=== PATIENT | male | born 1990 | race Hispanic/Latino ===

== ENCOUNTER 2018-03-02 17:02 | Emergency (ER) | payer BC, OTHER ==
[2018-03-02] MEDS ORDERED: METHYLPREDNISOLONE 125 MG INJ ONE (17:48)
[2018-03-02] MEDS ORDERED: LEVALBUTEROL 1.25 MG/3 ML NEB ONE ×2 (17:48→18:51)
--- NOTE | 2018-03-02 19:01 | RAD REPORT ---
EXAM DESCRIPTION: RAD - Chest Single View - 03/02/2018 6:02 pm CLINICAL HISTORY: Shortness of breath, asthma history, wheezing, cough COMPARISON: September 2016 TECHNIQUE: AP portable chest image was obtained 1758 hours . FINDINGS: Lung volumes are relatively low. No peripheral mass or consolidation. Significant failure is not suspected. Lung markings are prominent but not clearly different from comparison. Heart and va sculature are normal. No measurable pleural effusion and no pneumothorax. No gross bony abnormality s een. No acute aortic findings suspected. IMPRESSION: No acute cardiopulmonary process. No clear change from comparison.
--- NOTE | 2018-03-02 19:27 | ER ---
Nurse's Notes [facility] Name: Umer Becerra Age: 28 yrs Sex: Male : 1990 Arrival Date: 03/02/2018 Time: 17:09 Bed 10 Private MD: None, None Diagnosis: Asthma Presentation: 03/02 17:12 Presenting complaint: Patient states: SOB x 1 day. Denies fever. Transition of care: sv patient was not received from another setting of care. Onset of symptoms was March 02, 2018. Care prior to arrival: None. 17:12 Method Of Arrival: Ambulatory sv 17:12 Acuity: MAYRA 3 sv 17:55 Risk Assessment: Do you want to hurt yourself or someone else? Patient reports no rv desire to harm self or others. Initial Sepsis Screen: Does the patient meet any 2 criteria? No. Patient's initial sepsis screen is negative. Does the patient have a suspected source of infection? No. Patient's initial sepsis screen is negative. Triage Assessment: 17:55 General: Appears in no apparent distress. uncomfortable. Respiratory: Reports cough rv that is Onset: The symptoms/episode began/occurred suddenly, the patient has mild shortness of breath. Historical: - Allergies: 17:16 No Known Allergies; sv - Home Meds: 17:16 salbutamol [Active]; sv - PMHx: 17:16 Asthma; sv - PSHx: 17:16 None; sv - Immunization history:: Adult Immunizations up to date. - Social history:: Smoking status: Patient uses tobacco products, denies chronic smoking, but will smoke occasionally. - Ebola Screening: : No symptoms or risks identified at this time. Screenin:54 Abuse screen: Denies threats or abuse. Denies injuries from another. Nutritional rv screening: No deficits noted. Tuberculosis screening: No symptoms or risk factors identified. Fall Risk None identified. Assessment: 17:53 General: Appears in no apparent distress. uncomfortable, Behavior is calm, cooperative. rv Pain: Complains of pain in chest Also complains of shortness of breath, COUGH. Neuro: Level of Consciousness is awake, alert, obeys commands, Oriented to person, place, time, situation. Cardiovascular: Capillary refill < 3 seconds Rhythm is regular. Respiratory: Airway is patent Respiratory effort is even, Breath sounds are clear bilaterally. GI: No signs and/or symptoms were reported involving the gastrointestinal system. : No signs and/or symptoms were reported regarding the genitourinary system. EENT: No signs and/or symptoms were reported regarding the EENT system. Derm: Skin is intact. Vital Signs: 17:16 BP 122 / 73; Pulse 111; Resp 22; Pulse Ox 97% ; Weight 89.81 kg; Height 5 ft. 5 in. sv (165.10 cm); Pain 8/10; 17:16 Body Mass Index 32.95 (89.81 kg, 165.10 cm) sv ED Course: 17:09 Patient arrived in ED. mr 17:10 None, None is Private Physician. mr 17:15 Triage completed. sv 17:17 Arm band placed on right wrist. sv 17:20 Robb Gray MD is Attending Physician. kdr 17:45 Inserted saline lock: 20 gauge in right antecubital area, using aseptic technique. rv 17:55 Patient has correct armband on for positive identification. Call light in reach. Adult rv w/ patient. Pulse ox on. NIBP on. 18:00 CXR XRAY In Process Unspecified. EDMS 19:39 No provider procedures requiring assistance completed. IV discontinued, bleeding rv controlled, No redness/swelling at site. Pressure dressing applied. Administered Medications: 17:48 Drug: Xopenex (3) 1.25 mg Route: Inhalation; rv 19:38 Follow up: Response: No adverse reaction rv 17:48 Drug: SOLU-Medrol 125 mg Route: IVP; Site: right antecubital; rv 19:38 Follow up: Response: No adverse reaction rv 19:10 Drug: Xopenex (3) 1.25 mg Route: Inhalation; rv 19:38 Follow up: Response: No adverse reaction rv Outcome: 19:26 Discharge ordered by . kdr 19:39 Discharged to home ambulatory. rv 19:39 Condition: improved 19:39 Discharge instructions given to family, Instructed on discharge instructions, follow up and referral plans. medication usage, Demonstrated understanding of instructions, follow-up care, medications, Prescriptions given X 3. 19:39 Patient left the ED. rv Signatures: Dispatcher [employer] EDMS Gretta Kim RN RN Robb Gray MD MD kdr Rivera, Maria mr Pillo Bal, RN RN rv
--- NOTE | 2018-03-02 19:27 | EDPHYS ---
Physician Documentation [facility] Name: Umer Becerra Age: 28 yrs Sex: Male : 1990 Arrival Date: 03/02/2018 Time: 17:09 Bed 10 Private MD: None, None ED Physician Robb Gray HPI: 03/02 17:36 This 28 yrs old Male presents to ER via Ambulatory with complaints of Cough, kdr Shortness Of Breath. 17:37 This 28 yrs old Male presents to ER via Ambulatory with complaints of Cough, kdr Shortness Of Breath. 17:36 Onset: The symptoms/episode began/occurred acutely, suddenly, this morning. Associated kdr signs and symptoms: The patient has no apparent associated signs or symptoms. Modifying factors: The patient symptoms are alleviated by nothing, the patient symptoms are aggravated by. 17:37 The patient has shortness of breath at rest, with light activity. kdr 21:27 Duration: The symptoms are continuous, and are steadily getting worse. The patient's kdr shortness of breath is aggravated by coughing, exertion, light activity, is alleviated by nothing. Associated signs and symptoms: Pertinent positives: non-productive cough, Pertinent negatives: diaphoresis, dizziness, fever, hemoptysis, nausea, numbness in extremities, visual changes, vomiting. Severity of symptoms: At their worst the symptoms were mild moderate just prior to arrival, in the emergency department the symptoms are unchanged. The patient has experienced similar episodes in the past, multiple times. The patient has been recently seen at an urgent care, just prior to arrival, The patient didn't feel better so they came to the ED. Historical: - Allergies: 17:16 No Known Allergies; sv - Home Meds: 17:16 salbutamol [Active]; sv - PMHx: 17:16 Asthma; sv - PSHx: 17:16 None; sv - Immunization history:: Adult Immunizations up to date. - Social history:: Smoking status: Patient uses tobacco products, denies chronic smoking, but will smoke occasionally. - Ebola Screening: : No symptoms or risks identified at this time. ROS: 21:27 Constitutional: Negative for fever, chills, and weight loss, Eyes: Negative for injury, kdr pain, redness, and discharge, ENT: Negative for injury, pain, and discharge, Neck: Negative for injury, pain, and swelling, Cardiovascular: Negative for chest pain, palpitations, and edema, Abdomen/GI: Negative for abdominal pain, nausea, vomiting, diarrhea, and constipation, Back: Negative for injury and pain, : Negative for injury, bleeding, discharge, and swelling, MS/Extremity: Negative for injury and deformity, Skin: Negative for injury, rash, and discoloration, Neuro: Negative for headache, weakness, numbness, tingling, and seizure activity. Psych: Negative for depression, anxiety, suicide ideation, homicidal ideation, and hallucinations, Allergy/Immunology: Negative for hives, rash, and allergies, Endocrine: Negative for neck swelling, polydipsia, polyuria, polyphagia, and marked weight changes, Hematologic/Lymphatic: Negative for swollen nodes, abnormal bleeding, and unusual bruising. 21:27 Respiratory: Positive for cough, with no reported sputum, shortness of breath, wheezing, Negative for dyspnea on exertion, hemoptysis, orthopnea, pleurisy, sputum production. Exam: 21:27 Constitutional: This is a well developed, well nourished patient who is awake, alert, kdr and in no acute distress. Head/Face: Normocephalic, atraumatic. Eyes: Pupils equal round and reactive to light, extra-ocular motions intact. Lids and lashes normal. Conjunctiva and sclera are non-icteric and not injected. Cornea within normal limits. Periorbital areas with no swelling, redness, or edema. Neck: Trachea midline, no thyromegaly or masses palpated, and no cervical lymphadenopathy. Supple, full range of motion without nuchal rigidity, or vertebral point tenderness. No Meningismus. Chest/axilla: Normal chest wall appearance and motion. Nontender with no deformity. No lesions are appreciated. Cardiovascular: Regular rate and rhythm with a normal S1 and S2. No gallops, murmurs, or rubs. Normal PMI, no JVD. No pulse deficits. Abdomen/GI: Soft, non-tender, with normal bowel sounds. No distension or tympany. No guarding or rebound. No evidence of tenderness throughout. Back: No spinal tenderness. No costovertebral tenderness. Full range of motion. Skin: Warm, dry with normal turgor. Normal color with no rashes, no lesions, and no evidence of cellulitis. MS/ Extremity: Pulses equal, no cyanosis. Neurovascular intact. Full, normal range of motion. Neuro: Awake and alert, GCS 15, oriented to person, place, time, and situation. Cranial nerves II-XII grossly intact. Motor strength 5/5 in all extremities. Sensory grossly intact. Cerebellar exam normal. Normal gait. Psych: Awake, alert, with orientation to person, place and time. Behavior, mood, and affect are within normal limits. 21:27 Respiratory: mild respiratory distress is noted, moderate respiratory distress is noted, Respirations: labored breathing, that is mild, prolonged exhalation, that is mild, shallow respirations, that is mild, Breath sounds: wheezing: that is mild, is heard diffusely. Vital Signs: 17:16 BP 122 / 73; Pulse 111; Resp 22; Pulse Ox 97% ; Weight 89.81 kg; Height 5 ft. 5 in. sv (165.10 cm); Pain 8/10; 17:16 Body Mass Index 32.95 (89.81 kg, 165.10 cm) sv MDM: 19:26 Patient medically screened. kdr 21:27 Data reviewed: vital signs, nurses notes. Counseling: I had a detailed discussion with kdr the patient and/or guardian regarding: the historical points, exam findings, and any diagnostic results supporting the discharge/admit diagnosis, the need for outpatient follow up. 03/02 17:34 Order name: CXR XRAY; Complete Time: 19:25 kdr Administered Medications: 17:48 Drug: Xopenex (3) 1.25 mg Route: Inhalation; rv 19:38 Follow up: Response: No adverse reaction rv 17:48 Drug: SOLU-Medrol 125 mg Route: IVP; Site: right antecubital; rv 19:38 Follow up: Response: No adverse reaction rv 19:10 Drug: Xopenex (3) 1.25 mg Route: Inhalation; rv 19:38 Follow up: Response: No adverse reaction rv Disposition: 18 19:26 Discharged to Home. Impression: Asthma. - Condition is Stable. - Discharge Instructions: Asthma, Adult, [id number]. - Prescriptions for Pepcid 20 mg Oral Tablet - take 1 tablet by ORAL route every 12 hours for 5 days; 10 tablet. Medrol (Richi) 4 mg Oral Tablets, Dose Pack - take 1 tablet by ORAL route as directed - follow package instructions; 1 packet. Albuterol Sulfate 90 mcg/actuation Inhalation - inhale 1-2 puff by INHALATION route every 4-6 hours; 2 Inhaler. - Medication Reconciliation Form, Thank You Letter, Work release form form. - Follow up: Private Physician; When: 2 - 3 days; Reason: If symptoms return, Further diagnostic work-up, Recheck today's complaints, Continuance of care, Re-evaluation by your physician. - Problem is an acute exacerbation. - Symptoms have improved. Signatures: Dispatcher [employer] Gretta Gomez RN RN Robb Gray MD MD [facility] Pillo Bal RN RN rv Corrections: (The following items were deleted from the chart) 17:35 17:21 The patient or guardian reports cough, kdr kdr 17:35 17:21 This 28 yrs old Male presents to ER via Ambulatory with complaints of kdr Cough, Shortness Of Breath. kdr 17:35 17:22 Associated signs and symptoms: Pertinent positives: cough, fever, Pertinent kdr negatives: chest pain, constipation, cough, kdr 17:35 17:22 Modifying factors: The patient symptoms are alleviated by acetaminophen, kdr kdr 17:35 17:22 The patient has experienced similar episodes in the past, a few times, kdr kdr 17:35 17:22 The patient has not recently seen a physician, kdr kdr 17:35 17:25 Constitutional: Negative for weight loss - he has had fever to 103 Eyes: Negative kdr for injury, pain, redness, and discharge, ENT: Negative for injury, pain, and discharge, Neck: Negative for injury, pain, and swelling, Cardiovascular: Negative for chest pain, palpitations, and edema, Abdomen/GI: Negative for abdominal pain, nausea, vomiting, diarrhea, and constipation, Back: Negative for injury and pain, : Negative for injury, bleeding, discharge, and swelling, MS/Extremity: Negative for injury and deformity, Skin: Negative for injury, rash, and discoloration, Neuro: Negative for headache, weakness, numbness, tingling, and seizure activity. Psych: Negative for depression, anxiety, suicide ideation, homicidal ideation, and hallucinations, Allergy/Immunology: Negative for hives, rash, and allergies, Endocrine: Negative for neck swelling, polydipsia, polyuria, polyphagia, and marked weight changes, Hematologic/Lymphatic: Negative for swollen nodes, abnormal bleeding, and unusual bruising, kdr 17:35 17:25 Respiratory: Positive for cough, with no reported sputum, Negative for dyspnea on kdr exertion, hemoptysis, shortness of breath, sputum production, wheezing, kdr 17:35 17:25 Constitutional: This is a well developed, well nourished patient who is awake, kdr alert, and in no acute distress. Head/Face: Normocephalic, atraumatic. Eyes: Pupils equal round and reactive to light, extra-ocular motions intact. Lids and lashes normal. Conjunctiva and sclera are non-icteric and not injected. Cornea within normal limits. Periorbital areas with no swelling, redness, or edema. Neck: Trachea midline, no thyromegaly or masses palpated, and no cervical lymphadenopathy. Supple, full range of motion without nuchal rigidity, or vertebral point tenderness. No Meningismus. Chest/axilla: Normal chest wall appearance and motion. Nontender with no deformity. No lesions are appreciated. Cardiovascular: Regular rate and rhythm with a normal S1 and S2. No gallops, murmurs, or rubs. Normal PMI, no JVD. No pulse deficits. Respiratory: Lungs have equal breath sounds bilaterally, clear to auscultation and percussion. No rales, rhonchi or wheezes noted. No increased work of breathing, no retractions or nasal flaring. Abdomen/GI: Soft, non-tender, with normal bowel sounds. No distension or tympany. No guarding or rebound. No evidence of tenderness throughout. Back: No spinal tenderness. No costovertebral tenderness. Full range of motion. Skin: Warm, dry with normal turgor. Normal color with no rashes, no lesions, and no evidence of cellulitis. MS/ Extremity: Pulses equal, no cyanosis. Neurovascular intact. Full, normal range of motion. Neuro: Awake and alert, GCS 15, oriented to person, place, time, and situation. Cranial nerves II-XII grossly intact. Motor strength 5/5 in all extremities. Sensory grossly intact. Cerebellar exam normal. Normal gait. Psych: Awake, alert, with orientation to person, place and time. Behavior, mood, and affect are within normal limits. kdr 17:36 17:25 Data reviewed: vital signs, nurses notes, lab test result(s), kdr kdr 17:36 17:25 Counseling: I had a detailed discussion with the patient and/or guardian kdr regarding: the historical points, exam findings, and any diagnostic results supporting the discharge/admit diagnosis, lab results, kdr 17:36 17:34 Chest Single View+[id number] ordered. EDMS kdr 19:39 19:26 03/02/2018 19:26 Discharged to Home. Impression: Asthma. Condition is Stable. rv Forms are Medication Reconciliation Form, Thank You Letter, Antibiotic Education, Prescription Opioid Use. Follow up: Private Physician; When: 2 - 3 days; Reason: If symptoms return, Further diagnostic work-up, Recheck today's complaints, Continuance of care, Re-evaluation by your physician. Problem is an acute exacerbation. Symptoms have improved. kdr
[2018-03-02 19:43] VITALS: BP 122/73; O2SAT 97
== END 2018-03-02 19:39 | disposition home or self-care (01) ==
LOC: ER 17:02
DX: J45.909 Unspecified asthma, uncomplicated (principal); Z72.0 Tobacco use
CPT/HCPCS: 71045; 96374; 99284; J2930

== ENCOUNTER 2019-07-01 23:16 | Emergency (ER) | payer BC ==
[2019-07-01] MEDS ORDERED: ACETAMINOPHEN 500 MG TAB ONE (23:53)
[2019-07-02 02:52] LABS: Absolute Lymphocytes (CBC) 2.5 K/uL (0.7-4.9); Basophils % 0.5 % (0-1.3); Hematocrit 37.6 % (39.6-49.0); Lymphocytes % 17.7 % (15.3-44.8); RBC Red Blood Cell Count 6.15 M/uL (4.33-5.43)
--- NOTE | 2019-07-02 04:15 | ER ---
Nurse's Notes [facility] Name: Umer Becerra Age: 29 yrs Sex: Male : 1990 Arrival Date: 07/01/2019 Time: 23:21 Bed 13 Private MD: Diagnosis: Acute febrile illness. Pharyngitis. Leukocytosis Presentation: 07/01 23:45 Presenting complaint: Patient states: Fever, chills, body aches that began today; Temp lp1 of 102 about 2000 tonight, patient did not take any meds, worried about drug screen; Educated on medications for fever. Transition of care: patient was not received from another setting of care. Onset of symptoms was July 01, 2019. Risk Assessment: Do you want to hurt yourself or someone else? Patient reports no desire to harm self or others. Initial Sepsis Screen: Does the patient meet any 2 criteria? Temp <36.0*C (96.8*F)) or > 38.3*C (100.9*F). HR > 90 bpm. Does the patient have a suspected source of infection? No. Patient's initial sepsis screen is negative. Care prior to arrival: None. 23:45 Method Of Arrival: Ambulatory lp1 23:45 Acuity: MAYRA 4 lp1 Triage Assessment: 23:46 General: Patient unable to tolerate Flu swab. lp1 Historical: - Allergies: 23:47 No Known Allergies; lp1 - Home Meds: 23:47 salbutamol [Active]; lp1 - PMHx: 23:47 Asthma; lp1 - PSHx: 23:47 None; lp1 - Immunization history:: Adult Immunizations up to date. - Social history:: Smoking status: Patient reports the use of cigarette tobacco products, smokes one-half pack cigarettes per day. - Ebola Screening: : No symptoms or risks identified at this time. Screenin:51 Abuse screen: Denies threats or abuse. Denies injuries from another. Nutritional lp1 screening: No deficits noted. Tuberculosis screening: No symptoms or risk factors identified. Fall Risk None identified. Assessment: 00:00 General: Appears uncomfortable, ill, Behavior is cooperative, drowsy. Pain: Complains vc of pain in body aches. Neuro: Level of Consciousness is obeys commands, lethargic, Oriented to person, place, time. Cardiovascular: Capillary refill < 3 seconds Patient's skin is warm and dry. Rhythm is sinus tachycardia. Respiratory: Denies shortness of breath. GI: No signs and/or symptoms were reported involving the gastrointestinal system. : No signs and/or symptoms were reported regarding the genitourinary system. EENT: No signs and/or symptoms were reported regarding the EENT system. Derm: Skin temperature is hot. Musculoskeletal: Circulation, motion, and sensation intact. Range of motion: intact in all extremities. 07/02 01:00 Reassessment: Patient and/or family updated on plan of care and expected duration. Pain vc level reassessed. patient resting with eyes closed. Patient states symptoms have not improved. 02:00 Reassessment: Patient and/or family updated on plan of care and expected duration. Pain vc level reassessed. Patient states he feels dizzy when he stands up, patient sat down on bed and stated the dizziness went away. 03:00 Reassessment: Patient and/or family updated on plan of care and expected duration. Pain vc level reassessed. 04:00 Reassessment: Patient resting with eyes closed, respirations even and unlabored. Spouse vc at bedside. Vital Signs: 07/01 23:44 BP 126 / 72; Pulse 120; Resp 18; Temp 103.2(O); Pulse Ox 98% on R/A; Weight 99.79 kg lp1 (R); 07/02 01:00 BP 112 / 74; Pulse 118; Resp 20; Pulse Ox 97% on R/A; vc 01:33 Temp 100.6(O); lp1 02:00 BP 114 / 74; Pulse 107; Resp 17; Pulse Ox 96% on R/A; vc 03:16 BP 107 / 70; Pulse 105; Resp 18; Temp 100.9; Pulse Ox 97% on R/A; oe 04:00 BP 110 / 72; Pulse 102; Resp 18; Pulse Ox 97% on R/A; vc ED Course: 07/01 23:21 Patient arrived in ED. cl3 23:46 Triage completed. lp1 23:46 Arm band placed on. lp1 07/02 00:00 Patient has correct armband on for positive identification. vc 01:36 Sidra Madsen RN is Primary Nurse. vc 01:58 Honorio Mcdaniel MD is Attending Physician. pkl 04:45 IV discontinued, intact, bleeding controlled, No redness/swelling at site. Pressure vc dressing applied. 04:45 No provider procedures requiring assistance completed. vc Administered Medications: 07/01 23:51 Drug: Tylenol 1000 mg Route: PO; lp1 07/02 01:34 Follow up: Response: Temperature is decreased lp1 03:18 Follow up: Response: Temperature is decreased vc Outcome: 04:13 Discharge ordered by . pkl 04:45 Discharged to home ambulatory, with significant other. vc 04:45 Condition: good 04:45 Discharge instructions given to patient, significant other, Instructed on discharge instructions, follow up and referral plans. medication usage, Demonstrated understanding of instructions, follow-up care, medications, Prescriptions given X 1. 04:46 Patient left the ED. vc Signatures: Honorio Mcdaniel MD MD pkl Alma Sherman, RN RN lp1 David Diego Charde cl3 Sidra Madsen RN RN vc
--- NOTE | 2019-07-02 04:15 | EDPHYS ---
Physician Documentation [facility] Name: Umer Becerra Age: 29 yrs Sex: Male : 1990 Arrival Date: 07/01/2019 Time: 23:21 Bed 13 Private MD: ED Physician Honorio Mcdaniel HPI: 07/02 04:08 This 29 yrs old Male presents to ER via Ambulatory with complaints of Fever. pkl 04:08 The patient reports fever, that was measured at 103.2 degrees Fahrenheit. Onset: The pkl symptoms/episode began/occurred just prior to arrival. Associated signs and symptoms: Pertinent positives: bodyache. Historical: - Allergies: 07/01 23:47 No Known Allergies; lp1 - Home Meds: 23:47 salbutamol [Active]; lp1 - PMHx: 23:47 Asthma; lp1 - PSHx: 23:47 None; lp1 - Immunization history:: Adult Immunizations up to date. - Social history:: Smoking status: Patient reports the use of cigarette tobacco products, smokes one-half pack cigarettes per day. - Ebola Screening: : No symptoms or risks identified at this time. ROS: 07/02 04:08 Eyes: Negative for injury, pain, redness, and discharge, ENT: Negative for injury, pkl pain, and discharge, Neck: Negative for injury, pain, and swelling, Cardiovascular: Negative for chest pain, palpitations, and edema, Respiratory: Negative for shortness of breath, cough, wheezing, and pleuritic chest pain, Abdomen/GI: Negative for abdominal pain, nausea, vomiting, diarrhea, and constipation, Back: Negative for injury and pain, : Negative for injury, bleeding, discharge, and swelling, MS/Extremity: Negative for injury and deformity, Skin: Negative for injury, rash, and discoloration, Neuro: Negative for headache, weakness, numbness, tingling, and seizure. Exam: 04:08 Head/Face: Normocephalic, atraumatic. Eyes: Pupils equal round and reactive to light, pkl extra-ocular motions intact. Lids and lashes normal. Conjunctiva and sclera are non-icteric and not injected. Cornea within normal limits. Periorbital areas with no swelling, redness, or edema. 04:08 ENT: Posterior pharynx: erythema, that is mild. 04:08 Neck: Exam negative for nuchal rigidity. 04:08 Chest/axilla: Exam negative for acute changes. 04:08 Cardiovascular: Rate: tachycardic, actual rate is 120 bpm, Rhythm: regular. 04:08 Respiratory: the patient does not display signs of respiratory distress, Respirations: normal, Breath sounds: are clear throughout. 04:08 Abdomen/GI: Bowel sounds: normal, Palpation: abdomen is soft and non-tender, in all quadrants. 04:08 Back: Exam negative for acute changes. 04:08 : Exam negative for acute changes. 04:08 Musculoskeletal/extremity: Exam is negative for acute changes. 04:08 Skin: Exam negative for rash. 04:08 Neuro: Orientation: is normal, Mentation: is normal, Cranial nerves: grossly normal, Motor: is normal. Vital Signs: 07/01 23:44 BP 126 / 72; Pulse 120; Resp 18; Temp 103.2(O); Pulse Ox 98% on R/A; Weight 99.79 kg lp1 (R); 07/02 01:00 BP 112 / 74; Pulse 118; Resp 20; Pulse Ox 97% on R/A; vc 01:33 Temp 100.6(O); lp1 02:00 BP 114 / 74; Pulse 107; Resp 17; Pulse Ox 96% on R/A; vc 03:16 BP 107 / 70; Pulse 105; Resp 18; Temp 100.9; Pulse Ox 97% on R/A; oe 04:00 BP 110 / 72; Pulse 102; Resp 18; Pulse Ox 97% on R/A; vc MDM: 01:58 Patient medically screened. pkl 04:08 Data reviewed: vital signs, nurses notes, lab test result(s). pkl 07/01 23:43 Order name: Flu; Complete Time: 01:32 lp1 07/02 01:41 Order name: Strep; Complete Time: 03:59 [facility] 07/02 02:06 Order name: CBC with Diff pkl 07/02 02:51 Order name: Throat Culture EDMS Administered Medications: 07/01 23:51 Drug: Tylenol 1000 mg Route: PO; lp1 07/02 01:34 Follow up: Response: Temperature is decreased lp1 03:18 Follow up: Response: Temperature is decreased vc Disposition: 07/02/19 04:13 Discharged to Home. Impression: Acute febrile illness. Pharyngitis. Leukocytosis. - Condition is Stable. - Prescriptions for Zithromax Z- Richi 250 mg Oral Tablet - take 1 tablet by ORAL route as directed for 5 days Day 1 - take two (2) tablets one time. Day 2, 3, 4 , 5 take one (1) tablet once daily.; 6 tablet. - Medication Reconciliation Form, Thank You Letter, Antibiotic Education, Prescription Opioid Use, Work release form form. - Follow up: Private Physician; When: 2 - 3 days; Reason: Re-evaluation by your physician. - Problem is new. - Symptoms have improved. Signatures: Dispatcher [employer] EDMS Honorio Mcdaniel MD MD pkl Jevon Thomas PA PA jmm Pena, Laura, RN RN lp1 Sidra Madsen RN RN vc Corrections: (The following items were deleted from the chart) 04:46 04:13 07/02/2019 04:13 Discharged to Home. Impression: Acute febrile illness. vc Pharyngitis. Leukocytosis. Condition is Stable. Forms are Medication Reconciliation Form, Thank You Letter, Antibiotic Education, Prescription Opioid Use. Follow up: Private Physician; When: 2 - 3 days; Reason: Re-evaluation by your physician. Problem is new. Symptoms have improved. pkl
[2019-07-02 05:00] VITALS: BP 126/72; TEMP 103.2; O2SAT 98
[2019-07-02 05:32] LABS: Anisocytosis SLIGHT; Blood Morphology Comment NOTED (NOT SEEN); Hypochromasia 1+; Platelet Estimate ADEQ; Polychromasia SLIGHT
[2019-07-02 05:33] LABS: Ovalocytes SLIGHT; Poikilocytosis 1+; Teardrop Cell FEW
== END 2019-07-02 04:46 | disposition home or self-care (01) ==
LOC: ER 23:16
DX: J02.9 Acute pharyngitis, unspecified (principal); D72.829 Elevated white blood cell count, unspecified; F17.210 Nicotine dependence, cigarettes, uncomplicated
CPT/HCPCS: 36415; 85025; 87070; 87081; 87804; 99284

== ENCOUNTER 2020-10-22 07:29 | Day surgery (SDC) | payer BC ==
[2020-10-22] MEDS ORDERED: BUPIVACAINE 0.25% PF 30 ML VIAL ONE (08:03)
[2020-10-22] MEDS ORDERED: FENTANYL CITR 100 MCG/2 ML ONE ×2 (08:06→08:43)
[2020-10-22] MEDS ORDERED: propofoL 200 MG/20 ML VIAL IV ONE (08:06)
[2020-10-22] MEDS ORDERED: LIDOCAINE 1% MPF 5 ML VIAL ONE (08:06)
[2020-10-22] MEDS ORDERED: MIDAZOLAM HCL 2 MG/2 ML INJ ONE (08:06)
[2020-10-22] MEDS ORDERED: Ringers Lactate 1,000 ML IV ONE ×2 (08:11→09:16)
[2020-10-22] MEDS: CEFAZOLIN/SWI 1gm 1 GM/10 ML SYR ONE ×2 (08:15→08:30)
[2020-10-22] MEDS ORDERED: ROCURONIUM 50 MG/5 ML VIAL IV ONE (08:31)
[2020-10-22] MEDS ORDERED: LIDOCAINE JELLY 2%- 5 ML TUBE ONE (08:31)
[2020-10-22] MEDS ORDERED: dexAMETHasone 10 MG/ML VIAL ONE (08:52)
[2020-10-22] MEDS ORDERED: KETOROLAC 30 MG/ML INJ ONE (08:52)
[2020-10-22] MEDS ORDERED: ONDANSETRON 4 MG/2 ML VIAL ONE (09:14)
[2020-10-22] MEDS ORDERED: Phenylephrine HCl 10 MG/ML 1 ML VIAL ONE (09:14)
[2020-10-22] MEDS ORDERED: NS 0.9% VIAL 10 ML ONE (09:15)
--- NOTE | 2020-10-22 10:11 | P.OP ---
Safety Coordinator: CAMILA CHASE Preoperative diagnosis: Bilateral Inguinal Hernias - incarcerated Postoperative diagnosis: Bilateral Inguinal Hernias - incarcerated Primary procedure: Open Bilateral Inguinal Hernia Repair with Mesh Anesthesia: GETA + Local Estimated blood loss: <10cc Specimen: RIGHT cord lipoma Findings: Bilateral incarcerated indirect inguinal hernias Complications: None Implants: Large Bard Perfix Plug and Patch x2 Transferred to: Recovery Room Condition: Good
[2020-10-22] MEDS ORDERED: GLYCOPYRROLATE 0.2 MG/ML SYR ONE (10:25)
[2020-10-22] MEDS ORDERED: NEOSTIGMINE 1 MG/ML -5 ML ONE (10:30)
[2020-10-22] MEDS: MORPHINE 4 MG/ML SYR ONE ×2 (10:55→11:00)
[2020-10-22 12:01] VITALS: TEMP 98; O2SAT 98
--- NOTE | 2020-10-22 12:02 | OP ---
Date of Procedure: 10/22/2020 Surgeon: Adria Nieves MD, Preoperative Diagnosis: Bilateral inguinal hernias-incarcerated. Postoperative Diagnosis: Bilateral inguinal hernias-incarcerated. Procedure: Open bilateral inguinal hernia repair with mesh. Anesthesia: General endotracheal plus local with 0.25% Marcaine without epinephrine. Estimated Blood Loss: Less than 2 mL. Specimen: Right cord lipoma. Findings: Bilateral incarcerated indirect inguinal hernias. The patient had obliteration of the ext ernal oblique aponeurosis bilaterally. Complications: None. Implants: Large Bard PerFix plug and patch hernia repair system x2. Disposition: The patient was transferred to recovery room in good condition. Procedure In Detail: After informed consent was obtained, the patient was brought to the operating r oom, prepped and draped in the usual sterile fashion after adequate anesthesia achieved. I began wit h the left inguinal incision after appropriately anesthetizing the skin and dissected down through th e subcutaneous tissues. Electrocautery was used to dissect down through the [place]per fat and Gary fa scia to expose the external oblique aponeurosis. The hernia had been pushed all the way through the external oblique aponeurosis, which was pushed and frayed very thin and weak appearance to it. This was opened sharply over the hernia defect, which was through a defect in the external oblique aponeur osis. As such, gentle separation performed both to the deep inguinal ring. The spermatic cord and s tructures were encircled circumferentially with [place] drain and dissection continued down to remove the hernia, which was thought to be incarcerated in the indirect inguinal position. This was dissec adria free from the spermatic cord and structures down to the deep inguinal ring. I then pushed the in guinal hernia back into the preperitoneal space and dissected a plane circumferentially around this. I sized the mesh appropriately and found the tip at a large Bard PerFix hernia plug and patch system . The plug was sized appropriately and placed into the preperitoneal space, securing it circumferent ially around using 0 PDS sutures in a parachute type fashion with good apposition to the wall. The p atient was Valsalva'd and no defect was appreciated. I palpated the area and flattened out the mesh circumferentially around at this point. I then sized the patch appropriately and secured it to the p ubic tubercle in the medial and lateral shelving edges of the internal oblique aponeurosis and the sh elving edge of the inguinal ligament and reconstructed the deep inguinal ring covering the previous d efect. At this point, the area was copiously irrigated and suctioned out until completely dry, and t hen the [place] fat and Gary fascia as well as residual external oblique aponeurosis were closed en bloc in a running fashion with a 3-0 Vicryl suture and the skin was closed with 4-0 Monocryl in runni ng fashion. Dermabond placed over top. at the end of the procedure, the patient tolerate d procedure well without evidence of complication and transferred to PACU in good condition. All cou nts were correct at the end of the case. PAOLO/TOMMY Voice ID: [id number] Report ID: [id number]
[2020-10-22] MEDS ORDERED: HYDROCODONE/APAP 10/325 TAB ONE (12:11)
[2020-10-22 13:21] VITALS: BP 108/68
== END 2020-10-22 13:15 | disposition home or self-care (01) ==
LOC: OR 07:29
PROVIDERS: ATTEND Surgery
PROC: 0YUA0JZ Supplement Bilateral Inguinal Region with Synthetic Substitute, Open Approach (ICD-10-PCS; principal; 2020-10-22 08:00)
DX: K40.00 Bilateral inguinal hernia, with obstruction, without gangrene, not specified as recurrent (principal); Z20.822 Contact with and (suspected) exposure to COVID-19
CPT/HCPCS: 88302; 49507; U0003; J2704; J2370; J2250; J3010 ×2; J1100; J2710; J0690; J7120 ×2; J2405